=== PATIENT | female | born 1970 | race Caucasian/White ===

== ENCOUNTER → 2021-09-15 | Outpatient (CLI) | payer SELFPAY ==
[~2021-09-15] MED LIST: CASIRIVIMAB (REGN10933) (EUA) 600 MG, IMDEVIMAB (REGN10987) (EUA) 600 MG in SODIUM CHLO... IVPB NR; SODIUM CHLORIDE 0.9% 50 ML IVPB NR; SODIUM CHLORIDE 0.9% 500 ML 500 ML in EMPTY BAG 1 BAG IV PRN
[2021-09-15 10:41] VITALS: TEMP 98.4
[2021-09-15 11:01] VITALS: BP 116/77; PULSE 101; RESP 16
== END ==
LOC: PROCWHC3 10:04
DX: U07.1 COVID-19 (principal); E66.9 Obesity, unspecified; Z68.33 Body mass index [BMI] 33.0-33.9, adult; Z88.0 Allergy status to penicillin
CPT/HCPCS: Q0244; M0243

== ENCOUNTER 2025-04-20 20:21 | Inpatient (IN) | payer BC ==
--- NOTE | 2025-04-20 21:39 | ED ---
General Adult HPI - General Chief complaint: Abdominal Pain Stated complaint: Vomiting ABD pain Time Seen by Provider: 04/20/25 21:02 Source: patient, family, RN notes reviewed Mode of arrival: wheelchair - History of Present Illness Initial comments: 54-year-old female presents to the emergency department for evaluation of abdominal cramping and pain starting today. Patient reports that she has had lower abdominal pain followed by multiple episodes of diarrhea today. She does note gross blood in her bowel movements. She states that she had multiple episodes at home. She also endorses nausea and vomiting. Denies any known fever, chills. Denies any urinary symptoms. Prior surgeries include a hysterectomy. - Related Data Home Medications Medication Instructions Recorded Confirmed Aspirin EC [Ecotrin Low Dose] 81 mg PO W/BRKFST 04/21/25 04/21/25 Semaglutide [Ozempic] 1 mg SQ DELEON 04/21/25 04/21/25 lisinopriL [Zestril] 10 mg PO W/BRKFST 04/21/25 04/21/25 metFORMIN HCL [metFORMIN HCL ER] 750 mg PO W/BRKFST 04/21/25 04/21/25 ondansetron HCL [Zofran] 8 mg PO Q8HR PRN 04/21/25 04/21/25 Previous Rx's Medication Instructions Recorded Levofloxacin [Levaquin] 500 mg PO Q24H #10 tab 04/24/25 metroNIDAZOLE [Flagyl] 500 mg PO TID #30 tab 04/24/25 Allergies Allergy/AdvReac Type Severity Reaction Status Date / Time Penicillins Allergy Rash/Hives Verified 04/21/25 07:41 Review of Systems ROS Statement: Those systems with pertinent positive or pertinent negative responses have been documented in the HPI. ROS Other: All systems not noted in ROS Statement are negative. Past Medical History Past Medical History: No Reported History History of Any Multi-Drug Resistant Organisms: None Reported Past Surgical History: Ear Surgery Additional Past Surgical History / Comment(s): R ear implant Past Psychological History: No Psychological Hx Reported Smoking Status: Never smoker Past Alcohol Use History: None Reported Past Drug Use History: None Reported General Exam Limitations: no limitations General appearance: alert, in no apparent distress Head exam: Present: atraumatic, normocephalic, normal inspection Eye exam: Present: normal appearance, PERRL, EOMI. Absent: scleral icterus, conjunctival injection, periorbital swelling ENT exam: Present: mucous membranes dry Neck exam: Present: normal inspection. Absent: tenderness, meningismus, lymphadenopathy Respiratory exam: Present: normal lung sounds bilaterally. Absent: respiratory distress, wheezes, rales, rhonchi, stridor Cardiovascular Exam: Present: regular rate, normal rhythm, normal heart sounds. Absent: systolic murmur, diastolic murmur, rubs, gallop, clicks GI/Abdominal exam: Present: soft, tenderness, normal bowel sounds. Absent: distended, guarding, rebound, rigid Rectal exam: Present: normal rectal tone, heme (+) stool Extremities exam: Present: normal inspection, full ROM, normal capillary refill. Absent: tenderness, pedal edema, joint swelling, calf tenderness Back exam: Present: normal inspection Neurological exam: Present: alert, oriented X3 Psychiatric exam: Present: normal affect, normal mood Skin exam: Present: warm, dry, intact, normal color. Absent: rash Course Vital Signs 04/20/25 04/21/25 20:55 05:22 Temperature 98.1 F 98.4 F Pulse Rate 91 107 H Respiratory 18 18 Rate Blood Pressure 138/85 115/66 O2 Sat by Pulse 98 98 Oximetry Medical Decision Making - Medical Decision Making Was pt. sent in by a medical professional or institution ([employer], [employer], urgent care, hospital, or jail...) When possible be specific @ -No Did you speak to anyone other than the patient for history (EMS, parent, family, police, friend...)? What history was obtained from this source @ -No Did you review nursing and triage notes (agree or disagree)? Why? @ -I reviewed and agree with nursing and triage notes Were old charts reviewed (outside hosp., previous admission, EMS record, old EKG, old radiological studies, urgent care reports/EKG's, jail records)? Report findings @ -No old charts were reviewed Differential Diagnosis (chest pain, altered mental status, abdominal pain women, abdominal pain men, vaginal bleeding, weakness, fever, dyspnea, syncope, headache, dizziness, GI bleed, back pain, seizure, CVA, palpatations, mental health, musculoskeletal)? @ -Differential Abdominal Pain Men: Appendicitis, cholecystitis, diverticulosis, ischemic bowel, pancreatitis, hepatitis, UTI, gastroenteritis, AAA, incarcerated hernia, bowel obstruction, constipation, inflammatory bowel, hepatitis, peptic ulcer disease, splenic infarction, perforated viscus, testicular torsion, this is not meant to be an all-inclusive list EKG interpreted by me (3pts min.). @ -EKG at 2217 reveals sinus rhythm rate 85, NM 132, QRS 96, QT/QTc 393/435 X-rays interpreted by me (1pt min.). @ -None done CT interpreted by me (1pt min.). @ -CT of the abdomen pelvis reviewed long segment acute colitis sparing the cecum which could represent infectious, inflammatory and/or ischemic etiologies U/S interpreted by me (1pt. min.). @ -None done What testing was considered but not performed or refused? (CT, X-rays, U/S, labs)? Why? @ -None What meds were considered but not given or refused? Why? @ -None Did you discuss the management of the patient with other professionals (professionals i.e. , PA, DYE HOUSE WORKER, lab, RT, psych nurse, renal social worker, assistant terminal manager, teacher, executive officer, case consultant)? Give summary @ -Management discussed with [facility], Dr. Cutler who was accepting of the admission Was smoking cessation discussed for >3mins.? @ -No Was critical care preformed (if so, how long)? @ -No Were there social determinants of health that impacted care today? How? (Homelessness, low income, unemployed, alcoholism, drug addiction, transportation, low edu. Level, literacy, decrease access to med. care, snf, rehab)? @ -No Was there de-escalation of care discussed even if they declined (Discuss DNR or withdrawal of care, Hospice)? DNR status @ -No What co-morbidities impacted this encounter? (DM, HTN, Smoking, COPD, CAD, Cancer, CVA, ARF, Chemo, Hep., AIDS, mental health diagnosis, sleep apnea, morbid obesity)? @ -None Was patient admitted / discharged? Hospital course, mention meds given and route, prescriptions, significant lab abnormalities, going to OR and other pertinent info. @ -Admitted. Patient presented to the emergency department for evaluation of rectal bleeding and abdominal pain x1 day. Workup performed including laboratory studies which revealed leukocytosis at 19.9, hemoglobin 15.3 there is likely some degree of hemoconcentration due to dehydration. CMP reveals electrolytes within normal limits, hyperglycemia patient is a known diabetic. Patient underwent a CTA of the abdomen pelvis revealing long segment colitis with differentials including infectious, inflammatory, ischemic colitis with ulcerative colitis high in the differentials. Patient will be treated as such. Patient will be admitted to the hospital. She is understanding agreeable with this. Case was discussed with hospitalist, Dr. Cutler who is accepting of the admission Case discussed with Dr. Robertson Undiagnosed new problem with uncertain prognosis? @ -No Drug Therapy requiring intensive monitoring for toxicity (Heparin, Nitro, Insulin, Cardizem)? @ -No Were any procedures done? @ -No Diagnosis/symptom? @ -Colitis, GI bleed Acute, or Chronic, or Acute on Chronic? @ -Acute Uncomplicated (without systemic symptoms) or Complicated (systemic symptoms)? @ -Complicated Side effects of treatment? @ -No Exacerbation, Progression, or Severe Exacerbation? @ -No Poses a threat to life or bodily function? How? (Chest pain, [place], [place], pneumonia, PE, COPD, DKA, ARF, appy, cholecystitis, CVA, Diverticulitis, Homicidal, Suicidal, threat to staff... and all critical care pts) @ -GI bleed - Lab Data Result diagrams: 04/24/25 07:32 04/24/25 07:32 Lab Results 04/20/25 04/20/25 04/20/25 Range/Units 21:10 21:10 21:10 WBC 19.95 H (4.50-10.00) 10*3/uL RBC 5.43 H (4.10-5.20) 10*6/uL Hgb 15.3 H (12.0-15.0) g/dL Hct 45.2 (37.2-46.3) % MCV 83.2 (80.0-97.0) fL MCH 28.2 (27.0-32.0) pg MCHC 33.8 (32.0-37.0) g/dL Plt Count 273 (140-440) 10*3/uL MPV 10.9 (9.5-12.2) fL Immature Gran % (Auto) 0.5 % Neutrophils % 91.7 % Lymphocytes % 4.7 % Monocytes % 2.8 % Eosinophils % 0.0 % Basophils % 0.3 % Immature Gran # 0.09 H (0.00-0.04) 10*3/uL Neutrophils # 18.31 H (1.80-7.70) 10*3/uL Lymphocytes # 0.93 (0.90-5.00) 10*3/uL Monocytes # 0.56 (0.20-1.00) 10*3/uL Eosinophils # 0.00 L (0.04-0.35) 10*3/uL Basophils # 0.06 (0.00-0.10) 10*3/uL PT 10.7 (10.0-12.5) sec INR 1.0 (<1.2) APTT 21.7 L (22.0-30.0) sec Sodium 137 (137-145) mmol/L Potassium 4.3 (3.5-5.1) mmol/L Chloride 100 (98-107) mmol/L Carbon Dioxide 21 L (22-30) mmol/L Anion Gap 16 mmol/L BUN 24 H (7-17) mg/dL Creatinine 0.60 (0.52-1.04) mg/dL Est GFR (CKD-EPI)AfAm >90 (>60 ml/min/1.73 sqM) Est GFR (CKD-EPI)NonAf >90 (>60 ml/min/1.73 sqM) Glucose 263 H (74-99) mg/dL Calcium 9.4 (8.4-10.2) mg/dL Magnesium 1.9 (1.6-2.3) mg/dL Total Bilirubin 0.8 (0.2-1.3) mg/dL AST 28 (14-36) U/L ALT 31 (4-34) U/L Alkaline Phosphatase 93 (38-126) U/L Troponin I (0.000-0.034) ng/mL Total Protein 7.7 (6.3-8.2) g/dL Albumin 4.9 (3.5-5.0) g/dL Lipase 156 (23-300) U/L Urine Color Urine Appearance (Clear) Urine pH (5.0-8.0) Ur Specific [place] (1.001-1.035) Urine Protein (Negative) Urine Glucose (UA) (Negative) Urine Ketones (Negative) Urine Blood (Negative) Urine Nitrite (Negative) Urine Bilirubin (Negative) Urine Urobilinogen (<2.0) mg/dL Ur Leukocyte Esterase (Negative) Urine HCG, Qual (Not Detectd) 04/20/25 04/21/25 04/21/25 Range/Units 21:10 00:28 00:28 WBC (4.50-10.00) 10*3/uL RBC (4.10-5.20) 10*6/uL Hgb (12.0-15.0) g/dL Hct (37.2-46.3) % MCV (80.0-97.0) fL MCH (27.0-32.0) pg MCHC (32.0-37.0) g/dL Plt Count (140-440) 10*3/uL MPV (9.5-12.2) fL Immature Gran % (Auto) % Neutrophils % % Lymphocytes % % Monocytes % % Eosinophils % % Basophils % % Immature Gran # (0.00-0.04) 10*3/uL Neutrophils # (1.80-7.70) 10*3/uL Lymphocytes # (0.90-5.00) 10*3/uL Monocytes # (0.20-1.00) 10*3/uL Eosinophils # (0.04-0.35) 10*3/uL Basophils # (0.00-0.10) 10*3/uL PT (10.0-12.5) sec INR (<1.2) APTT (22.0-30.0) sec Sodium (137-145) mmol/L Potassium (3.5-5.1) mmol/L Chloride (98-107) mmol/L Carbon Dioxide (22-30) mmol/L Anion Gap mmol/L BUN (7-17) mg/dL Creatinine (0.52-1.04) mg/dL Est GFR (CKD-EPI)AfAm (>60 ml/min/1.73 sqM) Est GFR (CKD-EPI)NonAf (>60 ml/min/1.73 sqM) Glucose (74-99) mg/dL Calcium (8.4-10.2) mg/dL Magnesium (1.6-2.3) mg/dL Total Bilirubin (0.2-1.3) mg/dL AST (14-36) U/L ALT (4-34) U/L Alkaline Phosphatase (38-126) U/L Troponin I 0.015 (0.000-0.034) ng/mL Total Protein (6.3-8.2) g/dL Albumin (3.5-5.0) g/dL Lipase (23-300) U/L Urine Color Colorless Urine Appearance Clear (Clear) Urine pH 5.0 (5.0-8.0) Ur Specific [place] 1.050 H (1.001-1.035) Urine Protein Negative (Negative) Urine Glucose (UA) 1+ H (Negative) Urine Ketones 2+ H (Negative) Urine Blood Negative (Negative) Urine Nitrite Negative (Negative) Urine Bilirubin Negative (Negative) Urine Urobilinogen <2.0 (<2.0) mg/dL Ur Leukocyte Esterase Negative (Negative) Urine HCG, Qual Not Detected (Not Detectd) Disposition Clinical Impression: Colitis, Rectal bleeding Disposition: ADMITTED IP TO THIS HOSP Condition: Stable Is patient prescribed a controlled substance at d/c from ED?: No
[2025-04-20] MEDS: SODIUM CHLORIDE 0.9% 1,000 ML IV STA (21:55)
[2025-04-20] MEDS: MORPHINE SULFATE 4 MG/ML SYRINGE IVP STA (21:55)
[2025-04-20] MEDS: ONDANSETRON 4 MG/2 ML VIAL IVP STA (21:55)
[2025-04-20 22:13] LABS: Basophils # (A) 0.06 10*3/uL (0.00-0.10); Basophils % (A) 0.3 %; Eosinophils # (A) 0.00 10*3/uL (0.04-0.35); Eosinophils % (A) 0.0 %; HCT 45.2 % (37.2-46.3); HGB 15.3 g/dL (12.0-15.0); Lymphocytes # (A) 0.93 10*3/uL (0.90-5.00); Lymphocytes % (A) 4.7 %; MCH 28.2 pg (27.0-32.0); MCHC 33.8 g/dL (32.0-37.0); MCV 83.2 fL (80.0-97.0); Monocytes # (A) 0.56 10*3/uL (0.20-1.00); Monocytes % (A) 2.8 %; Neutrophils # (A) 18.31 10*3/uL (1.80-7.70); Neutrophils % (A) 91.7 %; Platelet Count 273 10*3/uL (140-440); RBC 5.43 10*6/uL (4.10-5.20); RDW 12.5 % (11.5-14.5); WBC 19.95 10*3/uL (4.50-10.00)
[2025-04-20 22:34] LABS: INR 1.0 (<1.2); Prothrombin Time 10.7 sec (10.0-12.5)
[2025-04-20 22:37] LABS: ALT 31 U/L (4-34); AST 28 U/L (14-36); African American GFR (CKD) >90 (>60 ml/min/1.73 sqM); Albumin 4.9 g/dL (3.5-5.0); Alkaline Phosphatase 93 U/L (38-126); Anion Gap 16 mmol/L; Blood Urea Nitrogen 24 mg/dL (7-17); Calcium 9.4 mg/dL (8.4-10.2); Carbon Dioxide 21 mmol/L (22-30); Chloride 100 mmol/L (98-107); Glucose 263 mg/dL (74-99); Lipase 156 U/L (23-300); Magnesium 1.9 mg/dL (1.6-2.3); Non-African American GFR(CKD) >90 (>60 ml/min/1.73 sqM); Potassium 4.3 mmol/L (3.5-5.1); Sodium 137 mmol/L (137-145); Total Protein 7.7 g/dL (6.3-8.2)
[2025-04-20 22:46] LABS: Partial Thromboplastin Time 21.7 sec (22.0-30.0)
--- NOTE | 2025-04-20 23:34 | CT ---
EXAMINATION TYPE: CT angio abdomen pelvis DATE OF EXAM: 04/20/2025 11:20 PM COMPARISON: None. HISTORY: Patient reports nausea/vomiting since this AM; patient lethargic and reports bloody stool. Patient endorses abdominal pain and cramping CT DLP: 1743.2 mGycm Automated exposure control for dose reduction was used. TECHNIQUE: Performed with IV Contrast, patient injected with 100 mL of Isovue 370. 3D reconstructed images are created on an independent workstation and reviewed.. FINDINGS: LUNG BASES: Some dependent atelectasis bilaterally. LIVER/GB: Liver borderline in size. Liver diffusely hypodense consistent with diffuse fatty infiltrat gary hepatocellular disease PANCREAS: No significant abnormality is seen. SPLEEN: No significant abnormality is seen. ADRENALS: No significant abnormality is seen. KIDNEYS: There is a nonobstructing 5 mm calculus in the right kidney axial image 38. There are few sm all simple appearing thin-walled cysts scattered throughout the right kidney that do not require foll ow-up. BOWEL: Suboptimal evaluation without enteric contrast. Mild to moderate wall thickening beginning in the right colon extends to the mid transverse colon. There is more moderate diffuse wall thickening a nd mild/moderate fat stranding near the splenic flexure into the left colon. [id number]-[id number] wall th ickening in the sigmoid colon extends into the rectum. There is sparing of the cecum and terminal ile um. No suspicious hypodense foci in the arterial phase images which become more prominent on delayed phase images to suggest active hemorrhage. A few distal colonic diverticula. No abnormal small or lar ge bowel dilatation. UTERUS/ADNEXA: No gross abnormality seen. LYMPH NODES: No greater than 1cm abdominal or pelvic lymph nodes are appreciated. OSSEOUS STRUCTURES: No significant abnormality is seen. OTHER: No significant additional abnormality is seen. IMPRESSION: There is a long segment acute colitis only sparing the cecum. Differential includes infec tious, inflammatory, and and ischemic etiologies. Ulcerative colitis needs to be strongly considered based on CT appearance. Correlate clinically. [facility], , 04/20/2025 11:31 PM
[2025-04-21] MEDS: methylPREDNISolone SOD SUCCI 125 MG/2 ML VIAL IV STA (00:38)
[2025-04-21] MEDS: SODIUM CHLORIDE 0.9% 1,000 ML IV ONE (00:39)
[2025-04-21] MEDS ORDERED: NALOXONE 0.4 MG/ML 1 ML VIAL IV PRN (00:44)
--- NOTE | 2025-04-21 00:44 | P.HPIM ---
History of Present Illness H&P Date: 04/21/25 Chief Complaint: Abdominal pain, diarrhea, and vomiting with bloody stools 54 year old female with diabetes and hypertension presents with severe abdominal pain, diarrhea, vomiting, and bloody stools. Patient reports this episode was significantly worse and lasted longer than previous similar episodes. Patient describes symptoms as "coming out both ends" and states the vomiting was "awful" and could not be controlled at home. Patient reports seeing "a lot" of blood mixed with stool. Patient has a history of IBS with typical constipation and diarrhea pattern, but denies previous episodes of bleeding to this extent. Previous episodes typically involved pain and vomiting, with pain causing the vomiting, but this episode was notably more severe and prolonged. CT scan f indings are suggestive of ulcerative colitis. Occasional alcohol use. Patient denies smoking or illicit drug use. PMHx Diabetes mellitus Hypertension Irritable bowel syndrome (IBS) with alternating constipation and diarrhea pattern Review of systems All systems reviewed with pertinent positive negatives as per HPI Gastrointestinal: Abdominal pain, diarrhea, vomiting, and bloody stools Genitourinary: Recent UTI approximately 2 weeks ago with blood noted for the first time. Denies burning with urination currently Respiratory: Denies cough or upper respiratory symptoms Constitutional: No other family members sick at home on exam Constitutional: No acute distress, conversant, pleasant Eyes: Anicteric sclerae, moist conjunctiva, Pupils equal round reactive to light ENMT: NC/AT Oropharynx clear, no erythema, or exudates Neck: Supple, no masses, or JVD No carotid bruits No thyromegaly Lungs: Clear to auscultation Clear to percussion Normal respiratory effort, no accessory muscle use Cardiovascular: Heart regular in rate and rhythm, No murmurs, gallops, or rubs No peripheral edema Abdominal: Soft Nontender, no guarding, rebound or rigidity Abdomen moving with respiration Extremities: No digital cyanosis No clubbing Pedal pulses intact and symmetrical Radial pulses intact and symmetrical No calf tenderness Psychiatric: Alert and oriented to person, place and time Appropriate affect fair judgement Neuro Muscles Strength 5/5 in all 4 extremities Sensation to light touch grossly present throughout Cranial nerves II-XII grossly intact Past Medical History Past Medical History: No Reported History History of Any Multi-Drug Resistant Organisms: None Reported Past Surgical History: Ear Surgery Additional Past Surgical History / Comment(s): R ear implant Past Psychological History: No Psychological Hx Reported Smoking Status: Never smoker Past Alcohol Use History: None Reported Past Drug Use History: None Reported Medications and Allergies Allergies Allergy/AdvReac Type Severity Reaction Status Date / Time Penicillins Allergy Unknown Verified 09/15/21 09:25 Physical Exam Vitals: Vital Signs Temp Pulse Resp BP Pulse Ox 04/20/25 20:55 98.1 F 91 18 138/85 98 Intake and Output 04/20/25 04/20/25 04/21/25 14:59 22:59 06:59 Other: Weight 83.915 kg Results CBC & Chem 7: 04/20/25 21:10 04/20/25 21:10 Labs: Abnormal Lab Results - Last 24 Hours (Table) 04/20/25 04/20/25 04/20/25 Range/Units 21:10 21:10 21:10 WBC 19.95 H (4.50-10.00) 10*3/uL RBC 5.43 H (4.10-5.20) 10*6/uL Hgb 15.3 H (12.0-15.0) g/dL Immature Gran # 0.09 H (0.00-0.04) 10*3/uL Neutrophils # 18.31 H (1.80-7.70) 10*3/uL Eosinophils # 0.00 L (0.04-0.35) 10*3/uL APTT 21.7 L (22.0-30.0) sec Carbon Dioxide 21 L (22-30) mmol/L BUN 24 H (7-17) mg/dL Glucose 263 H (74-99) mg/dL Assessment and Plan Assessment: Patient with diabetes and hypertension presenting with severe gastrointestinal symptoms including abdominal pain, diarrhea, vomiting, and bloody stools with CT scan findings suggestive of ulcerative colitis. 1. Suspected ulcerative colitis: - CT scan findings suggestive of ulcerative colitis - Family history of ulcerative colitis - New onset of bloody stools in patient with previous IBS history - Plan: a) Gastroenterology consultation b) outpatient/Inpatient colonoscopy as recommended by GI specialist Hemoglobin stable at 15.3 2. Elevated white blood cell count: - Likely related to inflammatory process - Plan: Monitor and follow up 3. Diabetes mellitus: - Plan: Continue insulin sliding scale 4. Hypertension: - Plan: Continue home BP meds DVT PPX mechanical secondary to GI bleeding CT scan: Findings suggestive of ulcerative colitis Laboratory: Elevated white blood cell count, renal function unremarkable sodium 137 potassium 4.3 BUN 24 creatinine 0.6, liver enzymes unremarkable Colonoscopy: Performed 7-8 years ago, no biopsies taken at that time
[2025-04-21 01:24] LABS: Bilirubin,Urine Negative (Negative); Blood,Urine Negative (Negative); Color,Urine Colorless; Glucose,Urine (UA) 1+ (Negative); Leukocyte Esterase,Urine Negative (Negative); Nitrite,Urine Negative (Negative); PH, Urine 5.0 (5.0-8.0); Protein,Urine Negative (Negative); Urobilinogen,Urine <2.0 mg/dL (<2.0)
[2025-04-21] MEDS: HYDROmorphone 1 MG/ML 1 ML SYRINGE IVP STA (01:34)
[2025-04-21 01:35] LABS: Specific Gravity,Urine 1.050 (1.001-1.035)
[2025-04-21 01:36] LABS: Ketones,Urine 2+ (Negative)
[2025-04-21] MEDS: SODIUM CHLORIDE 0.9% 1,000 ML IV SCH (01:38)
[2025-04-21] MEDS ORDERED: DEXTROSE 50% SYRINGE 50 ML IVP PRN ×2 (02:24)
[2025-04-21 03:01] LABS: Glucose,Whole Blood 225 mg/dL (70-110)
[2025-04-21] MEDS: INSULIN LISPRO (HumaLOG) 100 UNIT/ML 10 mL VL SQ SCH (09:20)
[2025-04-21] MEDS: HYDROmorphone 0.5 MG/0.5 ML SYRINGE IVP PRN (10:04)
[2025-04-21] MEDS: predniSONE 20 MG TAB PO SCH (10:04)
[2025-04-21] MEDS: ONDANSETRON 4 MG/2 ML VIAL IVP PRN (10:05)
[2025-04-21 10:39] LABS: HCT 39.9 % (37.2-46.3); HGB 13.3 g/dL (12.0-15.0); MCH 28.1 pg (27.0-32.0); MCHC 33.3 g/dL (32.0-37.0); MCV 84.2 fL (80.0-97.0); Platelet Count 267 10*3/uL (140-440); RBC 4.74 10*6/uL (4.10-5.20); RDW 12.2 % (11.5-14.5); WBC 15.80 10*3/uL (4.50-10.00)
[2025-04-21 10:51] LABS: Glucose,Whole Blood 215 mg/dL (70-110)
[2025-04-21 10:51] LABS: ALT 26 U/L (4-34); AST 20 U/L (14-36); African American GFR (CKD) >90 (>60 ml/min/1.73 sqM); Albumin 4.4 g/dL (3.5-5.0); Alkaline Phosphatase 78 U/L (38-126); Anion Gap 17 mmol/L; Blood Urea Nitrogen 17 mg/dL (7-17); Calcium 9.6 mg/dL (8.4-10.2); Carbon Dioxide 23 mmol/L (22-30); Chloride 103 mmol/L (98-107); Glucose 249 mg/dL (74-99); Non-African American GFR(CKD) >90 (>60 ml/min/1.73 sqM); Potassium 4.3 mmol/L (3.5-5.1); Sodium 143 mmol/L (137-145); Total Protein 7.1 g/dL (6.3-8.2)
--- NOTE | 2025-04-21 12:22 | P.CONS ---
History of Present Illness - Reason for Consult Consult date: 04/21/25 Colitis Requesting physician: Jazmine Jameson - Chief Complaint Abdominal pain and diarrhea - History of Present Illness This a pleasant 54-year-old female who presented to the emergency department yesterday with complaints of abdominal pain, diarrhea and blood in her stool. Patient states she has a history of IBS was diagnosed many years ago by her PCP. Medical history includes diabetes mellitus and IBS. Patient states she started having severe abdominal pain nausea and vomiting diarrhea with blood in her stool which she has not really had in the past. She states for multiple years she has had flareups where she will get diarrhea about 10 times a day for 1 to 2 days this occurs around every 2 to 3 weeks in the summer and maybe every month or 2 in the wintertime. She had a colonoscopy done about 7 to 8 years ago at [place] and states she was told it was normal. She currently is not on any medications for her IBS. She was recently started on Ozempic and metformin for elevated blood sugars. She also states she was recently started on antibiotics for urinary tract infection about 2 weeks ago. Last bowel movement was yesterday evening. Patient was admitted with leukocytosis, she was afebrile. She had a CT angiogram of the abdomen with reports of long segment acute colitis only sparing the cecum. Differential diagnosis includes infectious inflammatory and ischemic etiologies. Ulcerative colitis needs to be strongly considered based on CT appearance. Correlate clinically. Started on Zosyn and Flagyl, also started on prednisone 40 mg daily by primary medicine team. Patient currently is comfortable, no further rectal bleeding or diarrhea today. Leukocytosis trending down. Patient had a 2 g drop in her hemoglobin from 15- 13. Review of Systems REVIEW OF SYSTEMS: CARDIOPULMONARY: No chest pain or shortness of breath. Gastrointestinal: Abdominal pain. Nausea and vomiting, diarrhea. No hematemesis, coffee-ground emesis. Rectal bleeding with blood in stool. GENITOURINARY: No dysuria or hematuria. MUSCULOSKELETAL: Reports normal range of motion. SKIN: No rashes. No jaundice. ENDOCRINE: No chills, fevers. No excessive weight gain or loss. No polydipsia or polyuria. PSYCHIATRIC: Unremarkable. NEUROLOGY: No change in mental status. Denies dizziness, headache. ENT: Vision unremarkable. CONSTITUTIONAL: No recent weight loss. No fever, chills, night sweats. Past Medical History Past Medical History: No Reported History History of Any Multi-Drug Resistant Organisms: None Reported Past Surgical History: Ear Surgery Additional Past Surgical History / Comment(s): R ear implant Past Psychological History: No Psychological Hx Reported Smoking Status: Never smoker Past Alcohol Use History: None Reported Past Drug Use History: None Reported Medications and Allergies Home Medications Medication Instructions Recorded Confirmed Type Aspirin EC [Ecotrin Low Dose] 81 mg PO W/BRKFST 04/21/25 04/21/25 History Semaglutide [Ozempic] 1 mg SQ DELEON 04/21/25 04/21/25 History lisinopriL [Zestril] 10 mg PO W/BRKFST 04/21/25 04/21/25 History metFORMIN HCL [metFORMIN HCL ER] 750 mg PO W/BRKFST 04/21/25 04/21/25 History ondansetron HCL [Zofran] 8 mg PO Q8HR PRN 04/21/25 04/21/25 History Allergies Allergy/AdvReac Type Severity Reaction Status Date / Time Penicillins Allergy Rash/Hives Verified 04/21/25 07:41 Physical Exam Vitals: Vital Signs Temp Pulse Pulse Resp BP BP Pulse Ox 04/21/25 07:30 98.6 F 111 H 14 134/79 93 L 04/21/25 05:22 98.4 F 107 H 18 115/66 98 04/20/25 20:55 98.1 F 91 18 138/85 98 Intake and Output 04/20/25 04/21/25 04/21/25 22:59 06:59 14:59 Other: Weight 83.915 kg 83.915 kg General appearance: The patient is alert, oriented, appears in no acute distress. HET: Head is normocephalic and atraumatic. Conjunctiva pink. Sclera anicteric. Neck: Supple without lymphadenopathy. Trachea midline. Heart: Regular. Lungs: Equal expansion, normal respiratory effort. Abdomen: Soft, nontender, nondistended. Skin: No rashes. No jaundice. Extremities: Normal skin color and turgor. No pedal edema. Neurological: No focal deficits. Alert and oriented x3. Results CBC & Chem 7: 04/22/25 05:49 04/22/25 03:43 Labs: Abnormal Lab Results - Last 24 Hours (Table) 04/20/25 04/20/25 04/20/25 Range/Units 21:10 21:10 21:10 WBC 19.95 H (4.50-10.00) 10*3/uL RBC 5.43 H (4.10-5.20) 10*6/uL Hgb 15.3 H (12.0-15.0) g/dL Immature Gran # 0.09 H (0.00-0.04) 10*3/uL Neutrophils # 18.31 H (1.80-7.70) 10*3/uL Eosinophils # 0.00 L (0.04-0.35) 10*3/uL APTT 21.7 L (22.0-30.0) sec Carbon Dioxide 21 L (22-30) mmol/L BUN 24 H (7-17) mg/dL Glucose 263 H (74-99) mg/dL POC Glucose (mg/dL) (70-110) mg/dL Ur Specific [place] (1.001-1.035) Urine Glucose (UA) (Negative) Urine Ketones (Negative) 04/21/25 04/21/25 Range/Units 00:28 02:58 WBC (4.50-10.00) 10*3/uL RBC (4.10-5.20) 10*6/uL Hgb (12.0-15.0) g/dL Immature Gran # (0.00-0.04) 10*3/uL Neutrophils # (1.80-7.70) 10*3/uL Eosinophils # (0.04-0.35) 10*3/uL APTT (22.0-30.0) sec Carbon Dioxide (22-30) mmol/L BUN (7-17) mg/dL Glucose (74-99) mg/dL POC Glucose (mg/dL) 225 H (70-110) mg/dL Ur Specific [place] 1.050 H (1.001-1.035) Urine Glucose (UA) 1+ H (Negative) Urine Ketones 2+ H (Negative) Comments: CT angiogram of the abdomen with reports of long segment acute colitis only sparing the cecum. Differential diagnosis includes infectious inflammatory and ischemic etiologies. Ulcerative colitis needs to be strongly considered based on CT appearance. Correlate clinically. Assessment and Plan (1) Colitis Narrative/Plan: 54-year-old female presenting with abdominal pain nausea vomiting and diarrhea with previous diagnosis of IBS by her primary care physician. Recently on antibiotics for urinary tract infection which she completed about a week ago. This is a new patient who has mixed IBS with constipation and diarrhea where she has flareups of diarrhea for 10 times a day for 1 to 2 days at times. Admitted with leukocytosis concerning for possible infectious, ischemic versus inflammatory colitis with CT evidence. Continue antibiotics at this time, need to consider possible ulcerative colitis, although less likely. Last colonoscopy 7-8 years ago which she states was normal. Likely will defer colonoscopy at this time secondary to significant inflammation within the colon. Patient will need outpatient follow-up and colonoscopy with gastroenterology. Current Visit: Yes Status: Acute Code(s): K52.9 - NONINFECTIVE GASTROENTERITIS AND COLITIS, UNSPECIFIED SNOMED Code(s): 31739102 Plan: 1. Patient may have clear liquid diet 2. Symptomatic and supportive care 3. Antiemetics as needed 4. Continue antibiotics as ordered 5. Please send stool for C. difficile 6. Further recommendations forthcoming based on clinical course Thank you for this consultation, we will continue to follow. Dr. Camryn Rivas I agree with the dictator's note, documented as a scribe by Leydi Villa.
[2025-04-21] MEDS: LEVOFLOXACIN 500MG-D5W PMX 500 MG in DEXTROSE/WATER 1 100ML.BAG IVPB SCH (15:42)
--- NOTE | 2025-04-21 16:38 | P.PN ---
Subjective Progress Note Date: 04/21/25 Hospital course: Patient is a very pleasant 54-year-old female with a past medical history of hypertension, [id number] diabetes mellitus, and IBS with chronic constipation followed by diarrhea pattern. She presented to the emergency department on 04/20/2025 secondary to reports of severe abdominal pain, nausea, and vomiting accompanied by multiple episodes of bright red blood in her stool. She denied having any hematemesis or coffee-ground emesis and denied having any fevers, chills, diaphoresis, or lightheadedness. Upon arrival to our facility, patient underwent evaluation in the emergency department. Vital signs upon arrival show blood pressure 138/85, heart rate 91, respiratory rate 18, temp 98.1 F, and SpO2 of 98% on room air. EKG completed showing normal sinus rhythm at 85 bpm with no noted T wave or ST abnormality showing no signs of acute ische bartolome upon personal review and interpretation. Labs completed and reviewed. CBC showing leukocytosis with WBC count of 19.95 and hemoglobin of 15.3. Coagulation profile showing a low PTT of 21.7. BMP showing high anion gap metabolic acidosis with chloride of 100, bicarb of 21, and anion gap of 16 along with mild prerenal azotemia with BUN of 24. Blood glucose was 263. Calcium 9.4. Magnesium 1.9. Liver profile unremarkable. Troponin was 0.015. Lipase normal findings at 156. Urinalysis positive for glucose and proteins but negative for infection. Serum acetone negative. CTA abdomen and pelvis was completed showing a long segment of acute colitis only sparing the cecum concerning for infectious/inflammatory/ischemic etiologies, radiologist stating ulcerative colitis needs to be strongly considered based upon CT appearance. Physical exam: Patient was seen and fully evaluated at bedside this morning. She reports continued abdominal pain but feeling better than she did upon arrival with no further episodes of bright red blood per rectum since last night but also states she has not had any further bowel movements since last night. She states nausea and vomiting has been controlled since arrival to our facility and receiving antiemetics. Patient denies any chest pain, palpitations, shortness of breath, or any other complaints at this time. Vital signs reviewed and stable. General: Nontoxic, no distress and appears stated age. Derm: Skin warm and dry, normal coloration for ethnicity. Head: Atraumatic, normocephalic and symmetric. Eyes: EOM's intact, no lid lag, and anicteric sclera Mouth: no lip lesions, mucus membranes moist Cardiovascular: regular rate and rhythm with normal S1S2, no murmur, positive posterior tibial pulses bilaterally, and cap refill < 2 seconds. Lungs: Respirations even, regular, and unlabored on room air. Lungs CTA bilaterally, no rhonchi, no rales, no wheezing, and no accessory muscle usage. Abdominal: soft, bowel sounds x 4, tenderness upon palpation to bilateral lower quadrants, no guarding, no appreciable organomegaly Ext: ROM intact. No gross muscle atrophy, no edema, no contractures Neuro: Speech clear, face symmetrical and CN II-XII grossly intact with no noted focal neuro deficits Psych: Alert and oriented to person, place, time, and situation. Appropriate and pleasant affect. Assessment and Plan of Care: Colitis, concerns for possible ulcerative colitis Lower GI bleed, with reports of bright red blood per rectum, suspect secondary to above Leukocytosis Lactic acidosis Reported history of IBS Consult placed to gastroenterology. Continue IV antibiotics with Levaquin 500 mg every 24 hours and Flagyl 500 mg every 8 hours. IV fluid hydration with 0.9% normal saline at 100 cc/h. Clear liquid diet, advance only per recommendations of gastroenterology. Obtain C. difficile Continue close monitoring with repeat a.m. labs to follow closely for resolution of leukocytosis close monitoring of hemoglobin secondary to reports of lower GI bleed. Psz-[id number] diabetes mellitus with hyperglycemia Hold metformin and Ozempic and patient placed on glycemic protocol with Humalog sliding scale. Follow-up on hemoglobin A1c results. Hypertension Monitor vital signs and continue daily medication regimen with lisinopril 10 mg daily. Data and imaging reviewed: Vital signs reviewed. Blood pressure 134/79, heart rate 111, respiratory rate 14, temp 98.6 F, and SpO2 of 93% on room air. Morning labs reviewed. CBC showing some improvement of leukocytosis with i nitial WBC count of 19.95 decreasing down to 15.80 this morning and stable hemoglobin of 13.3. BMP unremarkable with exception of hyperglycemia with blood glucose of 249. Calcium 9.6. Liver profile unremarkable. Urinalysis was positive for glucose and ketones but negative for infection. Serum acetone was negative. CODE STATUS: Full code DVT prophylaxis: MANJEET caceres and SCDs Anticipated discharge date: Pending clinical course Anticipated discharge place: Home Patient was seen independently by Nurse Pracitioner. This document was prepared using Telly dictation software. Please allow for er rors in power saw mechanic, while rare they do occur. Eduardo Mojica NP rendered care for this patient independently, reviewed the findings and plan as documented in the note above and agree with plan. I did not physically speak with or examine the patient on this date. Objective - Vital Signs Vital signs: Vital Signs Temp 98.6 F 04/21/25 07:30 Pulse 111 H 04/21/25 07:30 Resp 14 04/21/25 07:30 BP 134/79 04/21/25 07:30 Pulse Ox 93 L 04/21/25 07:30 FiO2 Intake & Output 04/20/25 04/21/25 04/21/25 18:59 06:59 18:59 Weight 83.915 kg - Labs CBC & Chem 7: 04/21/25 09:43 04/21/25 09:43 Labs: Abnormal Lab Results - Last 24 Hours (Table) 04/20/25 04/20/25 04/20/25 Range/Units 21:10 21:10 21:10 WBC 19.95 H (4.50-10.00) 10*3/uL RBC 5.43 H (4.10-5.20) 10*6/uL Hgb 15.3 H (12.0-15.0) g/dL Immature Gran # 0.09 H (0.00-0.04) 10*3/uL Neutrophils # 18.31 H (1.80-7.70) 10*3/uL Eosinophils # 0.00 L (0.04-0.35) 10*3/uL APTT 21.7 L (22.0-30.0) sec Carbon Dioxide 21 L (22-30) mmol/L BUN 24 H (7-17) mg/dL Glucose 263 H (74-99) mg/dL POC Glucose (mg/dL) (70-110) mg/dL Ur Specific [place] (1.001-1.035) Urine Glucose (UA) (Negative) Urine Ketones (Negative) 04/21/25 04/21/25 Range/Units 00:28 02:58 WBC (4.50-10.00) 10*3/uL RBC (4.10-5.20) 10*6/uL Hgb (12.0-15.0) g/dL Immature Gran # (0.00-0.04) 10*3/uL Neutrophils # (1.80-7.70) 10*3/uL Eosinophils # (0.04-0.35) 10*3/uL APTT (22.0-30.0) sec Carbon Dioxide (22-30) mmol/L BUN (7-17) mg/dL Glucose (74-99) mg/dL POC Glucose (mg/dL) 225 H (70-110) mg/dL Ur Specific [place] 1.050 H (1.001-1.035) Urine Glucose (UA) 1+ H (Negative) Urine Ketones 2+ H (Negative)
[2025-04-21 16:53] LABS: Glucose,Whole Blood 209 mg/dL (70-110)
[2025-04-21] MEDS: metroNIDAZOLE-NS PMX 500 MG in SALINE 1 100ML.BAG IVPB SCH (17:08)
[2025-04-21 20:09] LABS: Glucose,Whole Blood 191 mg/dL (70-110)
[2025-04-22] MEDS: MELATONIN 3 MG TABLET PO PRN (00:02)
[2025-04-22 03:36] LABS: Glucose,Whole Blood 168 mg/dL (70-110)
[2025-04-22] MEDS: HYDROmorphone 1 MG/ML 1 ML SYRINGE IVP PRN (03:47)
[2025-04-22 03:57] LABS: Basophils # (A) 0.03 10*3/uL (0.00-0.10); Basophils % (A) 0.2 %; Eosinophils # (A) 0.00 10*3/uL (0.04-0.35); Eosinophils % (A) 0.0 %; HCT 37.4 % (37.2-46.3); HGB 12.7 g/dL (12.0-15.0); Lymphocytes # (A) 2.37 10*3/uL (0.90-5.00); Lymphocytes % (A) 12.7 %; MCH 28.0 pg (27.0-32.0); MCHC 34.0 g/dL (32.0-37.0); MCV 82.6 fL (80.0-97.0); Monocytes # (A) 1.03 10*3/uL (0.20-1.00); Monocytes % (A) 5.5 %; Neutrophils # (A) 15.06 10*3/uL (1.80-7.70); Neutrophils % (A) 80.8 %; Platelet Count 249 10*3/uL (140-440); RBC 4.53 10*6/uL (4.10-5.20); RDW 12.5 % (11.5-14.5); WBC 18.63 10*3/uL (4.50-10.00)
[2025-04-22 04:22] LABS: ALT 22 U/L (4-34); AST 20 U/L (14-36); African American GFR (CKD) >90 (>60 ml/min/1.73 sqM); Albumin 3.9 g/dL (3.5-5.0); Alkaline Phosphatase 66 U/L (38-126); Anion Gap 12 mmol/L; Blood Urea Nitrogen 14 mg/dL (7-17); Calcium 9.3 mg/dL (8.4-10.2); Carbon Dioxide 23 mmol/L (22-30); Chloride 104 mmol/L (98-107); Glucose 165 mg/dL (74-99); Non-African American GFR(CKD) >90 (>60 ml/min/1.73 sqM); Potassium 4.0 mmol/L (3.5-5.1); Sodium 139 mmol/L (137-145); Total Protein 6.4 g/dL (6.3-8.2)
[2025-04-22 06:25] LABS: HCT 35.3 % (37.2-46.3); HGB 11.8 g/dL (12.0-15.0); MCH 28.4 pg (27.0-32.0); MCHC 33.4 g/dL (32.0-37.0); MCV 85.1 fL (80.0-97.0); Platelet Count 246 10*3/uL (140-440); RBC 4.15 10*6/uL (4.10-5.20); RDW 12.4 % (11.5-14.5); WBC 18.80 10*3/uL (4.50-10.00)
[2025-04-22 06:39] LABS: Glucose,Whole Blood 157 mg/dL (70-110)
[2025-04-22] MEDS: CALCIUM CARBONATE 500 MG CHEWABLE PO PRN (08:36)
[2025-04-22] MEDS: LACTATED RINGERS 1,000 ML IV SCH (08:42)
[2025-04-22] MEDS: PANTOPRAZOLE 40 MG/10 ML VIAL IVP SCH (08:42)
[2025-04-22 09:54] LABS: HCT 34.2 % (37.2-46.3); HGB 11.8 g/dL (12.0-15.0); MCH 28.9 pg (27.0-32.0); MCHC 34.5 g/dL (32.0-37.0); MCV 83.6 fL (80.0-97.0); Platelet Count 243 10*3/uL (140-440); RBC 4.09 10*6/uL (4.10-5.20); RDW 12.7 % (11.5-14.5); WBC 19.36 10*3/uL (4.50-10.00)
--- NOTE | 2025-04-22 10:42 | P.PN ---
Subjective Progress Note Date: 04/22/25 Principal diagnosis: Colitis, GI bleed This a pleasant 54-year-old female who presented to the emergency department yesterday with complaints of abdominal pain, diarrhea and blood in her stool. Patient states she has a history of IBS was diagnosed many years ago by her PCP. Medical history includes diabetes mellitus and IBS. Patient states she started having severe abdominal pain nausea and vomiting diarrhea with blood in her stool which she has not really had in the past. She states for multiple years she has had flareups where she will get diarrhea about 10 times a day for 1 to 2 days this occurs around every 2 to 3 weeks in the summer and maybe every month or 2 in the wintertime. She had a colonoscopy done about 7 to 8 years ago at [facility] and states she was told it was normal. She currently is not on any medications for her IBS. She was recently started on Ozempic and metformin for elevated blood sugars. She also states she was recently started on antibiotics for urinary tract infection about 2 weeks ago. Last bowel movement was yesterday evening. Patient was admitted with leukocytosis, she was afebrile. She had a CT angiogram of the abdomen with reports of long segment acute colitis only sparing the cecum. Differential diagnosis includes infectious inflammatory and ischemic etiologies. Ulcerative colitis needs to be strongly considered ba sed on CT appearance. Correlate clinically. Started on Zosyn and Flagyl, also started on prednisone 40 mg daily by primary medicine team. Patient currently is comfortable, no further rectal bleeding or diarrhea today. Leukocytosis trending down. Patient had a 2 g drop in her hemoglobin from 15-13. 04/22/2025 Patient seen and examined today as a follow-up. Patient had an 18 called early this morning as she had episode of abdominal cramping and bright red blood per rectum around 345. She was transferred to the ICU as an overflow for 3 S. She has had no further bleeding since that time. States she has just overall abdominal discomfort. She remains on IV antibiotics. No nausea or vomiting. Patient is hemodynamically stable. Today's labs WBC 18.8 hemoglobin 11.8 hematocrit 35 platelet count 246,000 Objective - Vital Signs Vital signs: Vital Signs Temp 98.1 F 04/22/25 04:50 Pulse 88 04/22/25 05:27 Resp 16 04/22/25 05:27 BP 135/76 04/22/25 05:27 Pulse Ox 93 L 04/22/25 05:27 FiO2 Intake & Output 04/21/25 04/22/25 04/22/25 18:59 06:59 18:59 Intake Total 240 100 Balance 240 100 Weight 75.3 kg Intake: IV 100 Sodium Chloride 0.9% 1, 100 000 ml @ 100 mls/hr IV . Q10H REJI Rx#:[id number] Oral 240 Other: # Voids 1 # Bowel Movements 1 - Exam General appearance: The patient is alert, oriented, appears in no acute distress. HET: Head is normocephalic and atraumatic. Conjunctiva pink. Sclera anicteric. Neck: Supple without lymphadenopathy. Abdomen: Soft, mild tenderness, nondistended. Extremities: Normal skin color and turgor. No pedal edema Skin: No rashes, no jaundice Neurological: No focal deficits. Alert and oriented. - Labs CBC & Chem 7: 04/22/25 09:33 04/22/25 03:43 Labs: Abnormal Lab Results - Last 24 Hours (Table) 04/21/25 04/21/25 04/21/25 Range/Units 09:43 09:43 10:50 WBC 15.80 H (4.50-10.00) 10*3/uL Hgb (12.0-15.0) g/dL Hct (37.2-46.3) % Immature Gran # (0.00-0.04) 10*3/uL Neutrophils # (1.80-7.70) 10*3/uL Monocytes # (0.20-1.00) 10*3/uL Eosinophils # (0.04-0.35) 10*3/uL Creatinine 0.47 L (0.52-1.04) mg/dL Glucose 249 H (74-99) mg/dL POC Glucose (mg/dL) 215 H (70-110) mg/dL Hemoglobin A1c (<=6.0) % 04/21/25 04/21/25 04/22/25 Range/Units 16:51 20:08 03:34 WBC (4.50-10.00) 10*3/uL Hgb (12.0-15.0) g/dL Hct (37.2-46.3) % Immature Gran # (0.00-0.04) 10*3/uL Neutrophils # (1.80-7.70) 10*3/uL Monocytes # (0.20-1.00) 10*3/uL Eosinophils # (0.04-0.35) 10*3/uL Creatinine (0.52-1.04) mg/dL Glucose (74-99) mg/dL POC Glucose (mg/dL) 209 H 191 H 168 H (70-110) mg/dL Hemoglobin A1c (<=6.0) % 04/22/25 04/22/25 04/22/25 Range/Units 03:42 03:43 03:43 WBC 18.63 H (4.50-10.00) 10*3/uL Hgb (12.0-15.0) g/dL Hct (37.2-46.3) % Immature Gran # 0.14 H (0.00-0.04) 10*3/uL Neutrophils # 15.06 H (1.80-7.70) 10*3/uL Monocytes # 1.03 H (0.20-1.00) 10*3/uL Eosinophils # 0.00 L (0.04-0.35) 10*3/uL Creatinine (0.52-1.04) mg/dL Glucose 165 H (74-99) mg/dL POC Glucose (mg/dL) (70-110) mg/dL Hemoglobin A1c 7.1 H (<=6.0) % 04/22/25 04/22/25 Range/Units 05:49 06:38 WBC 18.80 H (4.50-10.00) 10*3/uL Hgb 11.8 L (12.0-15.0) g/dL Hct 35.3 L (37.2-46.3) % Immature Gran # (0.00-0.04) 10*3/uL Neutrophils # (1.80-7.70) 10*3/uL Monocytes # (0.20-1.00) 10*3/uL Eosinophils # (0.04-0.35) 10*3/uL Creatinine (0.52-1.04) mg/dL Glucose (74-99) mg/dL POC Glucose (mg/dL) 157 H (70-110) mg/dL Hemoglobin A1c (<=6.0) % Assessment and Plan (1) Colitis Narrative/Plan: 54-year-old female presenting with abdominal pain nausea vomiting and diarrhea with previous diagnosis of IBS by her primary care physician. Recently on antibiotics for urinary tract infection which she completed about a week ago. This is a new patient who has mixed IBS with constipation and diarrhea where she has flareups of diarrhea for 10 times a day for 1 to 2 days at times. Admitted with leukocytosis concerning for possible infectious, ischemic versus inflammatory colitis with CT evidence. Continue antibiotics at this time, need to consider possible ulcerative colitis, although less likely. Last colonoscopy 7-8 years ago which she states was normal. Patient with another episode of for painful cramping followed by blood per rectum. Stool for C. difficile pending not collected. Again likely dealing with infectious colitis versus ischemic colitis. Continue to treat symptomatically. If further bleeding may consider colonoscopy while inpatient. Current Visit: Yes Status: Acute Code(s): K52.9 - NONINFECTIVE GASTROENTERITIS AND COLITIS, UNSPECIFIED SNOMED Code(s): 21915511 Plan: 1. Patient may have clear liquid diet 2. Symptomatic and supportive care 3. CBC every 6 hours 4. Antiemetics as needed 5. Continue antibiotics as ordered 6. Please send stool for C. difficile 7. Patient continues to have further bleeding, may consider possible colonoscopy as an inpatient otherwise recommend outpatient colonoscopy in 4 to 6 weeks. Further recommendations forthcoming based on clinical course Thank you for this consultation, we will continue to follow. Dr. Camryn Rivas I agree with the dictator's note, documented as a scribe by Leydi Villa.
--- NOTE | 2025-04-22 14:39 | P.PN ---
Subjective Progress Note Date: 04/22/25 Hospital course: Patient is a very pleasant 54-year-old female with a past medical history of hypertension, knv-ihqmddl-esrlrqnyw diabetes mellitus, and IBS with chronic constipation followed by diarrhea pattern. She presented to the emergency department on 04/20/2025 secondary to reports of severe abdominal pain, nausea, and vomiting accompanied by multiple episodes of bright red blood in her stool. She denied having any hematemesis or coffee-ground emesis and denied having any fevers, chills, diaphoresis, or lightheadedness. Upon arrival to our facility, patient underwent evaluation in the emergency department. Vital signs upon arrival show blood pressure 138/85, heart rate 91, respiratory rate 18, temp 98.1 F, and SpO2 of 98% on room air. EKG completed showing normal sinus rhythm at 85 bpm with no noted T wave or ST abnormality showing no signs of acute ische bartolome upon personal review and interpretation. Labs completed and reviewed. CBC showing leukocytosis with WBC count of 19.95 and hemoglobin of 15.3. Coagulation profile showing a low PTT of 21.7. BMP showing high anion gap metabolic acidosis with chloride of 100, bicarb of 21, and anion gap of 16 along with mild prerenal azotemia with BUN of 24. Blood glucose was 263. Calcium 9.4. Magnesium 1.9. Liver profile unremarkable. Troponin was 0.015. Lipase normal findings at 156. Urinalysis positive for glucose and proteins but negative for infection. Serum acetone negative. CTA abdomen and pelvis was completed showing a long segment of acute colitis only sparing the cecum concerning for infectious/inflammatory/ischemic etiologies, radiologist stating ulcerative colitis needs to be strongly considered based upon CT appearance. Physical exam: Patient was seen and fully evaluated at bedside this morning. She reports continued intermittent abdominal pain/cramping and had another episode of bright red blood per rectum early this morning around 3 AM and was transferred to , but placed in ICU overflow bed. Patient reports this episode was mostly blood w ith just a little bit of liquid stool. She denies having any nausea, vomiting, headache, lightheadedness, chest pain, palpitations, shortness of breath, or any other complaints at this time. Vital signs reviewed and stable. General: Nontoxic, no distress and appears stated age. Derm: Skin warm and dry, normal coloration for ethnicity. Head: Atraumatic, normocephalic and symmetric. Eyes: EOM's intact, no lid lag, and anicteric sclera Mouth: no lip lesions, mucus membranes moist Cardiovascular: regular rate and rhythm with normal S1S2, no murmur, positive posterior tibial pulses bilaterally, and cap refill < 2 seconds. Lungs: Respirations even, regular, and unlabored on room air. Lungs CTA bilaterally, no rhonchi, no rales, no wheezing, and no accessory muscle usage. Abdominal: soft, bowel sounds x 4, tenderness upon palpation to bilateral lower quadrants, no guarding, no appreciable organomegaly Ext: ROM intact. No gross muscle atrophy, no edema, no contractures Neuro: Speech clear, face symmetrical and CN II-XII grossly intact with no noted focal neuro deficits Psych: Alert and oriented to person, place, time, and situation. Appropriate and pleasant affect. Assessment and Plan of Care: Colitis, concerns for possible ulcerative colitis Lower GI bleed, with reports of bright red blood per rectum, suspect secondary to above Acute blood loss anemia, secondary to above Leukocytosis Lactic acidosis, resolved with IV fluid hydration Reported history of IBS Furnace Charger following, discussed plan of care in detail with gastroenterology BUILDING SERVICE WORKER. Hemoglobin has been trended resulting at 12.7, 11.8, and 11.8. Leukocytosis remains with WBC count of 19.36 this morning. Continue IV antibiotics with Levaquin 500 mg every 24 hours and Flagyl 500 mg every 8 hours. IV fluid hydration with 0.9% normal saline at 100 cc/h. Clear liquid diet, advance only per recommendations of gastroenterology. Obtain C. difficile Continue close monitoring with repeat a.m. labs to follow closely for resolution of leukocytosis close monitoring of hemoglobin secondary to reports of lower GI bleed. Cwa-exebqwd-blyxxyyot diabetes mellitus with hyperglycemia Hold metformin and Ozempic and patient placed on glycemic protocol with Humalog sliding scale. Follow-up on hemoglobin A1c results. Hypertension Monitor vital signs and continue daily medication regimen with lisinopril 10 mg daily. Data and imaging reviewed: Vital signs reviewed. Blood pressure 112/79, heart rate 87, respiratory rate 14, temp 98.1 F, and SpO2 of 97% on room air Morning labs reviewed. CBC showing Leukocytosis remains with WBC count of 19.36 and hemoglobin trended closely over the past 18 hours and stable at 12.7, 11.8, and 11.8. BMP unremarkable with exception of hyperglycemia with blood glucose of 165. Hemoglobin A1c was elevated at 7.1. Liver profile unremarkable. CODE STATUS: Full code DVT prophylaxis: MANJEET caceres and SCDs Anticipated discharge date: Pending clinical course Anticipated discharge place: Home Patient was seen independently by Nurse Pracitioner. This document was prepared using [employer] dictation software. Please allow for errors in hardener helper, while rare they do occur. Eduardo Mojica NP rendered care for this patient independently, reviewed the findings and plan as documented in the note above and agree with plan. I did not physically speak with or examine the patient on this date. Objective - Vital Signs Vital signs: Vital Signs Temp 98.1 F 04/22/25 08:00 Pulse 87 04/22/25 08:00 Resp 14 04/22/25 08:00 BP 112/79 04/22/25 08:00 Pulse Ox 97 04/22/25 08:00 FiO2 Intake & Output 04/21/25 04/22/25 04/22/25 18:59 06:59 18:59 Intake Total 240 100 Balance 240 100 Weight 75.3 kg Intake: IV 100 Sodium Chloride 0.9% 1, 100 000 ml @ 100 mls/hr IV . Q10H REJI Rx#:[id number] Oral 240 Other: # Voids 1 # Bowel Movements 1 - Labs CBC & Chem 7: 04/22/25 09:33 04/22/25 03:43 Labs: Abnormal Lab Results - Last 24 Hours (Table) 04/21/25 04/21/25 04/21/25 Range/Units 09:43 09:43 10:50 WBC 15.80 H (4.50-10.00) 10*3/uL Hgb (12.0-15.0) g/dL Hct (37.2-46.3) % Immature Gran # (0.00-0.04) 10*3/uL Neutrophils # (1.80-7.70) 10*3/uL Monocytes # (0.20-1.00) 10*3/uL Eosinophils # (0.04-0.35) 10*3/uL Creatinine 0.47 L (0.52-1.04) mg/dL Glucose 249 H (74-99) mg/dL POC Glucose (mg/dL) 215 H (70-110) mg/dL Hemoglobin A1c (<=6.0) % 04/21/25 04/21/25 04/22/25 Range/Units 16:51 20:08 03:34 WBC (4.50-10.00) 10*3/uL Hgb (12.0-15.0) g/dL Hct (37.2-46.3) % Immature Gran # (0.00-0.04) 10*3/uL Neutrophils # (1.80-7.70) 10*3/uL Monocytes # (0.20-1.00) 10*3/uL Eosinophils # (0.04-0.35) 10*3/uL Creatinine (0.52-1.04) mg/dL Glucose (74-99) mg/dL POC Glucose (mg/dL) 209 H 191 H 168 H (70-110) mg/dL Hemoglobin A1c (<=6.0) % 04/22/25 04/22/25 04/22/25 Range/Units 03:42 03:43 03:43 WBC 18.63 H (4.50-10.00) 10*3/uL Hgb (12.0-15.0) g/dL Hct (37.2-46.3) % Immature Gran # 0.14 H (0.00-0.04) 10*3/uL Neutrophils # 15.06 H (1.80-7.70) 10*3/uL Monocytes # 1.03 H (0.20-1.00) 10*3/uL Eosinophils # 0.00 L (0.04-0.35) 10*3/uL Creatinine (0.52-1.04) mg/dL Glucose 165 H (74-99) mg/dL POC Glucose (mg/dL) (70-110) mg/dL Hemoglobin A1c 7.1 H (<=6.0) % 04/22/25 04/22/25 Range/Units 05:49 06:38 WBC 18.80 H (4.50-10.00) 10*3/uL Hgb 11.8 L (12.0-15.0) g/dL Hct 35.3 L (37.2-46.3) % Immature Gran # (0.00-0.04) 10*3/uL Neutrophils # (1.80-7.70) 10*3/uL Monocytes # (0.20-1.00) 10*3/uL Eosinophils # (0.04-0.35) 10*3/uL Creatinine (0.52-1.04) mg/dL Glucose (74-99) mg/dL POC Glucose (mg/dL) 157 H (70-110) mg/dL Hemoglobin A1c (<=6.0) %
[2025-04-22] MEDS: diphenhydrAMINE 50 MG/ML 1 ML VIAL IVP STA (15:10)
[2025-04-22] MEDS: FAMOTIDINE 20 MG/2 ML VIAL IV STA (15:10)
[2025-04-22 15:48] LABS: Basophils # (A) 0.04 10*3/uL (0.00-0.10); Basophils % (A) 0.3 %; Eosinophils # (A) 0.01 10*3/uL (0.04-0.35); Eosinophils % (A) 0.1 %; HCT 35.6 % (37.2-46.3); HGB 12.0 g/dL (12.0-15.0); Lymphocytes # (A) 3.48 10*3/uL (0.90-5.00); Lymphocytes % (A) 22.9 %; MCH 28.6 pg (27.0-32.0); MCHC 33.7 g/dL (32.0-37.0); MCV 85.0 fL (80.0-97.0); Monocytes # (A) 0.68 10*3/uL (0.20-1.00); Monocytes % (A) 4.5 %; Neutrophils # (A) 10.94 10*3/uL (1.80-7.70); Neutrophils % (A) 71.7 %; Platelet Count 216 10*3/uL (140-440); RBC 4.19 10*6/uL (4.10-5.20); RDW 12.6 % (11.5-14.5); WBC 15.22 10*3/uL (4.50-10.00)
[2025-04-22 16:04] LABS: Glucose,Whole Blood 158 mg/dL (70-110)
[2025-04-22 20:12] LABS: Glucose,Whole Blood 144 mg/dL (70-110)
[2025-04-23 06:14] LABS: Glucose,Whole Blood 152 mg/dL (70-110)
[2025-04-23] MEDS: ACETAMINOPHEN TAB 325 MG TAB PO PRN (06:49)
[2025-04-23 07:18] LABS: HCT 33.1 % (37.2-46.3); HGB 11.0 g/dL (12.0-15.0); MCH 28.0 pg (27.0-32.0); MCHC 33.2 g/dL (32.0-37.0); MCV 84.2 fL (80.0-97.0); Platelet Count 190 10*3/uL (140-440); RBC 3.93 10*6/uL (4.10-5.20); RDW 12.5 % (11.5-14.5); WBC 9.77 10*3/uL (4.50-10.00)
[2025-04-23 08:11] LABS: ALT 25 U/L (4-34); AST 27 U/L (14-36); African American GFR (CKD) >90 (>60 ml/min/1.73 sqM); Albumin 3.3 g/dL (3.5-5.0); Alkaline Phosphatase 56 U/L (38-126); Anion Gap 8 mmol/L; Blood Urea Nitrogen 11 mg/dL (7-17); Calcium 8.7 mg/dL (8.4-10.2); Carbon Dioxide 26 mmol/L (22-30); Chloride 104 mmol/L (98-107); Glucose 147 mg/dL (74-99); Magnesium 1.9 mg/dL (1.6-2.3); Non-African American GFR(CKD) >90 (>60 ml/min/1.73 sqM); Potassium 3.8 mmol/L (3.5-5.1); Sodium 138 mmol/L (137-145); Total Protein 5.5 g/dL (6.3-8.2)
[2025-04-23 11:44] LABS: Glucose,Whole Blood 208 mg/dL (70-110)
--- NOTE | 2025-04-23 12:23 | P.PN ---
Subjective Progress Note Date: 04/23/25 Principal diagnosis: Colitis, GI bleed This a pleasant 54-year-old female who presented to the emergency department yesterday with complaints of abdominal pain, diarrhea and blood in her stool. Patient states she has a history of IBS was diagnosed many years ago by her PCP. Medical history includes diabetes mellitus and IBS. Patient states she started having severe abdominal pain nausea and vomiting diarrhea with blood in her stool which she has not really had in the past. She states for multiple years she has had flareups where she will get diarrhea about 10 times a day for 1 to 2 days this occurs around every 2 to 3 weeks in the summer and maybe every month or 2 in the wintertime. She had a colonoscopy done about 7 to 8 years ago at [place] and states she was told it was normal. She currently is not on any medications for her IBS. She was recently started on Ozempic and metformin for elevated blood sugars. She also states she was recently started on antibiotics for urinary tract infection about 2 weeks ago. Last bowel movement was yesterday evening. Patient was admitted with leukocytosis, she was afebrile. She had a CT angiogram of the abdomen with reports of long segment acute colitis only sparing the cecum. Differential diagnosis includes infectious inflammatory and ischemic etiologies. Ulcerative colitis needs to be strongly considered ba sed on CT appearance. Correlate clinically. Started on Zosyn and Flagyl, also started on prednisone 40 mg daily by primary medicine team. Patient currently is comfortable, no further rectal bleeding or diarrhea today. Leukocytosis trending down. Patient had a 2 g drop in her hemoglobin from 15-13. 04/22/2025 Patient seen and examined today as a follow-up. Patient had an [employer] called early this morning as she had episode of abdominal cramping and bright red blood per rectum around 345. She was transferred to the ICU as an overflow for 3 S. She has had no further bleeding since that time. States she has just overall abdominal discomfort. She remains on IV antibiotics. No nausea or vomiting. Patient is hemodynamically stable. Today's labs WBC 18.8 hemoglobin 11.8 hematocrit 35 platelet count 246,000 04/23/2025 Patient seen and examined today as a follow-up. She states that she is feeling better. Abdominal pain improving. She has not had any further bowel movements. No rectal bleeding. No nausea or vomiting. Has been tolerating clear liquid diet. Hemoglobin stable 11.0. She has been afebrile. Leukocytosis improved. Objective - Vital Signs Vital signs: Vital Signs Temp 97.7 F 04/23/25 04:00 Pulse 76 04/23/25 04:00 Resp 14 04/23/25 04:00 BP 121/78 04/23/25 04:00 Pulse Ox 95 04/23/25 04:00 FiO2 Intake & Output 04/22/25 04/22/25 04/23/25 06:59 18:59 06:59 Intake Total 100 800 240 Balance 100 800 240 Weight 75.3 kg 75.2 kg Intake: IV 100 800 Sodium Chloride 0.9% 1, 100 800 000 ml @ 100 mls/hr IV . Q10H REJI Rx#:[id number] Oral 240 Other: Voiding Method Toilet # Voids 1 3 4 # Bowel Movements 1 1 - Exam General appearance: The patient is alert, oriented, appears in no acute distress. HET: Head is normocephalic and atraumatic. Conjunctiva pink. Sclera anicteric. Neck: Supple without lymphadenopathy. Abdomen: Soft, mild tenderness, nondistended. Extremities: Normal skin color and turgor. No pedal edema Skin: No rashes, no jaundice Neurological: No focal deficits. Alert and oriented. - Labs CBC & Chem 7: 04/23/25 06:21 04/23/25 06:21 Labs: Abnormal Lab Results - Last 24 Hours (Table) 04/22/25 04/22/25 04/22/25 Range/Units 03:42 09:33 15:29 WBC 19.36 H 15.22 H (4.50-10.00) 10*3/uL RBC 4.09 L (4.10-5.20) 10*6/uL Hgb 11.8 L (12.0-15.0) g/dL Hct 34.2 L 35.6 L (37.2-46.3) % Immature Gran # 0.07 H (0.00-0.04) 10*3/uL Neutrophils # 10.94 H (1.80-7.70) 10*3/uL Eosinophils # 0.01 L (0.04-0.35) 10*3/uL POC Glucose (mg/dL) (70-110) mg/dL Hemoglobin A1c 7.1 H (<=6.0) % 04/22/25 04/22/25 04/23/25 Range/Units 16:03 20:11 06:14 WBC (4.50-10.00) 10*3/uL RBC (4.10-5.20) 10*6/uL Hgb (12.0-15.0) g/dL Hct (37.2-46.3) % Immature Gran # (0.00-0.04) 10*3/uL Neutrophils # (1.80-7.70) 10*3/uL Eosinophils # (0.04-0.35) 10*3/uL POC Glucose (mg/dL) 158 H 144 H 152 H (70-110) mg/dL Hemoglobin A1c (<=6.0) % Assessment and Plan (1) Colitis Narrative/Plan: 54-year-old female presenting with abdominal pain nausea vomiting and diarrhea with previous diagnosis of IBS by her primary care physician. Recently on antibiotics for urinary tract infection which she completed about a week ago. This is a new patient who has mixed IBS with constipation and diarrhea where she has flareups of diarrhea for 10 times a day for 1 to 2 days at times. Admitted with leukocytosis concerning for possible infectious, ischemic versus inflammatory colitis with CT evidence. Continue antibiotics at this time, need to consider possible ulcerative colitis, although less likely. Last colonoscopy 7-8 years ago which she states was normal. Patient with another episode of for painful cramping followed by blood per rectum. Stool for C. difficile pending not collected. Again likely dealing with infectious colitis versus ischemic colitis. Continue to treat symptomatically. If further bleeding may consider colonoscopy while inpatient. Current Visit: Yes Status: Acute Code(s): K52.9 - NONINFECTIVE GASTROENTERITIS AND COLITIS, UNSPECIFIED SNOMED Code(s): 11744896 Plan: 1. Patient may have clear liquid diet 2. Symptomatic and supportive care 3. Advance to full liquid diet then advance as tolerated 4. Antiemetics as needed 5. Continue antibiotics as ordered 6. Symptoms have been improving. Recommend outpatient colonoscopy in 4 to 6 weeks 7. Likely discharge home tomorrow Thank you for this consultation, we will continue to follow. Dr. Camryn Rivas I agree with the dictator's note, documented as a scribe by Leydi Villa.
--- NOTE | 2025-04-23 14:11 | P.PN ---
Subjective Progress Note Date: 04/23/25 Hospital course: Patient is a very pleasant 54-year-old female with a past medical history of hypertension, [id number]-xnqbtwvom diabetes mellitus, and IBS with chronic constipation followed by diarrhea pattern. She presented to the emergency department on 04/20/2025 secondary to reports of severe abdominal pain, nausea, and vomiting accompanied by multiple episodes of bright red blood in her stool. She denied having any hematemesis or coffee-ground emesis and denied having any fevers, chills, diaphoresis, or lightheadedness. Upon arrival to our facility, patient underwent evaluation in the emergency department. Vital signs upon arrival show blood pressure 138/85, heart rate 91, respiratory rate 18, temp 98.1 F, and SpO2 of 98% on room air. EKG completed showing normal sinus rhythm at 85 bpm with no noted T wave or ST abnormality showing no signs of acute ische bartolome upon personal review and interpretation. Labs completed and reviewed. CBC showing leukocytosis with WBC count of 19.95 and hemoglobin of 15.3. Coagulation profile showing a low PTT of 21.7. BMP showing high anion gap metabolic acidosis with chloride of 100, bicarb of 21, and anion gap of 16 along with mild prerenal azotemia with BUN of 24. Blood glucose was 263. Calcium 9.4. Magnesium 1.9. Liver profile unremarkable. Troponin was 0.015. Lipase normal findings at 156. Urinalysis positive for glucose and proteins but negative for infection. Serum acetone negative. CTA abdomen and pelvis was completed showing a long segment of acute colitis only sparing the cecum concerning for infectious/inflammatory/ischemic etiologies, radiologist stating ulcerative colitis needs to be strongly considered based upon CT appearance. Physical exam: Patient was seen and fully evaluated at bedside this morning. She reports resolution of abdominal pain/cramping since yesterday evening. She denies any further episodes of blood in her stool but states she has not had any further bowel movements. Patient tolerating clear liquid diet and denies any episodes of nausea or vomiting. Vital signs reviewed and stable. General: Nontoxic, no distress and appears stated age. Derm: Skin warm and dry, normal coloration for ethnicity. Head: Atraumatic, normocephalic and symmetric. Eyes: EOM's intact, no lid lag, and anicteric sclera Mouth: no lip lesions, mucus membranes moist Cardiovascular: regular rate and rhythm with normal S1S2, no murmur, positive posterior tibial pulses bilaterally, and cap refill < 2 seconds. Lungs: Respirations even, regular, and unlabored on room air. Lungs CTA bilaterally, no rhonchi, no rales, no wheezing, and no accessory muscle usage. Abdominal: soft, bowel sounds x 4, tenderness upon palpation to bilateral lower quadrants, no guarding, no appreciable organomegaly Ext: ROM intact. No gross muscle atrophy, no edema, no contractures Neuro: Speech clear, face symmetrical and CN II-XII grossly intact with no noted focal neuro deficits Psych: Alert and oriented to person, place, time, and situation. Appropriate and pleasant affect. Assessment and Plan of Care: Colitis, concerns for possible ulcerative colitis Lower GI bleed, with reports of bright red blood per rectum, suspect secondary t o above Acute blood loss anemia, secondary to above. Stable Leukocytosis, resolved Lactic acidosis, resolved with IV fluid hydration Reported history of IBS and family history of ulcerative colitis Speech Therapy Assistant following, discussed plan of care in detail with gastroenterology BARREL BRANDER and further recommendations patient's diet to be slowly advanced throughout the day, repeat hemoglobin in the morning and likely cleared for discharge tomorrow. Hemoglobin stable at 11.0. Leukocytosis resolved and is 9.77 this morning. Continue IV antibiotics with Levaquin 500 mg every 24 hours and Flagyl 500 mg every 8 hours. Clear liquid diet, advance only per recommendations of gastroenterology. Obtain C. difficile Continue close monitoring with repeat a.m. labs to follow closely for resoluti on of leukocytosis close monitoring of hemoglobin secondary to reports of lower GI bleed. Wcn-kojmssz-ofdzqdumz diabetes mellitus with hyperglycemia Hold metformin and Ozempic and patient placed on glycemic protocol with Humalog sliding scale. Hemoglobin A1c 7.1%.. Hypertension Monitor vital signs and continue daily medication regimen with lisinopril 10 mg daily. Data and imaging reviewed: Vital signs reviewed. Blood pressure 110/74, heart rate 84, respiratory rate 18, temp 98.5 F, and SpO2 of 96% on room air. Morning labs reviewed. CBC showing resolution of leukocytosis this morning with WBC count down to 9.77 and stable hemoglobin of 11.0. Platelet count 198,000. BMP unremarkable with exception of mild hyperglycemia with blood glucose of 147. Hemoglobin A1c resulting at 7.1%. Calcium 8.7, magnesium 1.9, and liver profile unremarkable with exception of mild hypoproteinemia with protein of 5.5 and hypoalbuminemia with albumin of 3.3. CODE STATUS: Full code DVT prophylaxis: MANJEET caceres and SCDs Anticipated discharge date: Pending clinical course, likely tomorrow morning Anticipated discharge place: Home Patient was seen independently by Nurse Pracitioner. This document was prepared using [employer] dictation software. Please allow for errors in aviation engineer, while rare they do occur. Eduardo Mojica BARREL BRANDER rendered care for this patient independently, reviewed the findi ngs and plan as documented in the note above and agree with plan. I did not physically speak with or examine the patient on this date. Objective - Vital Signs Vital signs: Vital Signs Temp 98.5 F 04/23/25 07:50 Pulse 84 04/23/25 07:50 Resp 18 04/23/25 07:50 BP 110/74 04/23/25 07:50 Pulse Ox 96 04/23/25 07:50 FiO2 Intake & Output 04/22/25 04/23/25 04/23/25 18:59 06:59 18:59 Intake Total 800 240 Balance 800 240 Weight 75.2 kg Intake: IV 800 Sodium Chloride 0.9% 1, 800 000 ml @ 100 mls/hr IV . Q10H REJI Rx#:[id number] Oral 240 Other: Voiding Method Toilet # Voids 3 4 # Bowel Movements 1 - Labs CBC & Chem 7: 04/23/25 06:21 04/23/25 06:21 Labs: Abnormal Lab Results - Last 24 Hours (Table) 04/22/25 04/22/25 04/22/25 Range/Units 09:33 15:29 16:03 WBC 19.36 H 15.22 H (4.50-10.00) 10*3/uL RBC 4.09 L (4.10-5.20) 10*6/uL Hgb 11.8 L (12.0-15.0) g/dL Hct 34.2 L 35.6 L (37.2-46.3) % Immature Gran # 0.07 H (0.00-0.04) 10*3/uL Neutrophils # 10.94 H (1.80-7.70) 10*3/uL Eosinophils # 0.01 L (0.04-0.35) 10*3/uL Glucose (74-99) mg/dL POC Glucose (mg/dL) 158 H (70-110) mg/dL Total Protein (6.3-8.2) g/dL Albumin (3.5-5.0) g/dL 04/22/25 04/23/25 04/23/25 Range/Units 20:11 06:14 06:21 WBC (4.50-10.00) 10*3/uL RBC 3.93 L (4.10-5.20) 10*6/uL Hgb 11.0 L (12.0-15.0) g/dL Hct 33.1 L (37.2-46.3) % Immature Gran # (0.00-0.04) 10*3/uL Neutrophils # (1.80-7.70) 10*3/uL Eosinophils # (0.04-0.35) 10*3/uL Glucose (74-99) mg/dL POC Glucose (mg/dL) 144 H 152 H (70-110) mg/dL Total Protein (6.3-8.2) g/dL Albumin (3.5-5.0) g/dL 04/23/25 Range/Units 06:21 WBC (4.50-10.00) 10*3/uL RBC (4.10-5.20) 10*6/uL Hgb (12.0-15.0) g/dL Hct (37.2-46.3) % Immature Gran # (0.00-0.04) 10*3/uL Neutrophils # (1.80-7.70) 10*3/uL Eosinophils # (0.04-0.35) 10*3/uL Glucose 147 H (74-99) mg/dL POC Glucose (mg/dL) (70-110) mg/dL Total Protein 5.5 L (6.3-8.2) g/dL Albumin 3.3 L (3.5-5.0) g/dL
[2025-04-23 16:52] LABS: Glucose,Whole Blood 210 mg/dL (70-110)
[2025-04-23] MEDS: CALCIUM CARBONATE 500 MG CHEWABLE PO PRN (17:28)
[2025-04-23] MEDS: FAMOTIDINE 20 MG/2 ML VIAL IV STA (17:41)
[2025-04-23] MEDS: diphenhydrAMINE 50 MG/ML 1 ML VIAL IVP STA (17:41)
[2025-04-23 20:26] LABS: Glucose,Whole Blood 97 mg/dL (70-110)
[2025-04-24 05:29] LABS: Glucose,Whole Blood 132 mg/dL (70-110)
[2025-04-24 08:15] VITALS: BP 123/80; PULSE 83; RESP 18; TEMP 97.5
[2025-04-24 08:34] LABS: HCT 36.4 % (37.2-46.3); HGB 12.2 g/dL (12.0-15.0); MCH 28.4 pg (27.0-32.0); MCHC 33.5 g/dL (32.0-37.0); MCV 84.8 fL (80.0-97.0); Platelet Count 218 10*3/uL (140-440); RBC 4.29 10*6/uL (4.10-5.20); RDW 12.4 % (11.5-14.5); WBC 8.85 10*3/uL (4.50-10.00)
[2025-04-24 08:44] LABS: ALT 29 U/L (4-34); AST 29 U/L (14-36); African American GFR (CKD) >90 (>60 ml/min/1.73 sqM); Albumin 3.5 g/dL (3.5-5.0); Alkaline Phosphatase 55 U/L (38-126); Anion Gap 9 mmol/L; Blood Urea Nitrogen 13 mg/dL (7-17); Calcium 9.0 mg/dL (8.4-10.2); Carbon Dioxide 27 mmol/L (22-30); Chloride 102 mmol/L (98-107); Glucose 156 mg/dL (74-99); Magnesium 1.9 mg/dL (1.6-2.3); Non-African American GFR(CKD) >90 (>60 ml/min/1.73 sqM); Potassium 3.6 mmol/L (3.5-5.1); Sodium 138 mmol/L (137-145); Total Protein 5.8 g/dL (6.3-8.2)
[2025-04-24] MEDS: metroNIDAZOLE 500 MG TAB PO SCH (09:44)
--- NOTE | 2025-04-24 09:55 | P.PN ---
Subjective Progress Note Date: 04/24/25 Principal diagnosis: Colitis, GI bleed This a pleasant 54-year-old female who presented to the emergency department yesterday with complaints of abdominal pain, diarrhea and blood in her stool. Patient states she has a history of IBS was diagnosed many years ago by her PCP. Medical history includes diabetes mellitus and IBS. Patient states she started having severe abdominal pain nausea and vomiting diarrhea with blood in her stool which she has not really had in the past. She states for multiple years she has had flareups where she will get diarrhea about 10 times a day for 1 to 2 days this occurs around every 2 to 3 weeks in the summer and maybe every month or 2 in the wintertime. She had a colonoscopy done about 7 to 8 years ago at [place] and states she was told it was normal. She currently is not on any medications for her IBS. She was recently started on Ozempic and metformin for elevated blood sugars. She also states she was recently started on antibiotics for urinary tract infection about 2 weeks ago. Last bowel movement was yesterday evening. Patient was admitted with leukocytosis, she was afebrile. She had a CT angiogram of the abdomen with reports of long segment acute colitis only sparing the cecum. Differential diagnosis includes infectious inflammatory and ischemic etiologies. Ulcerative colitis needs to be strongly considered ba sed on CT appearance. Correlate clinically. Started on Zosyn and Flagyl, also started on prednisone 40 mg daily by primary medicine team. Patient currently is comfortable, no further rectal bleeding or diarrhea today. Leukocytosis trending down. Patient had a 2 g drop in her hemoglobin from 15-13. 04/22/2025 Patient seen and examined today as a follow-up. Patient had an [facility] called early this morning as she had episode of abdominal cramping and bright red blood per rectum around 345. She was transferred to the ICU as an overflow for 3 S. She has had no further bleeding since that time. States she has just overall abdominal discomfort. She remains on IV antibiotics. No nausea or vomiting. Patient is hemodynamically stable. Today's labs WBC 18.8 hemoglobin 11.8 hematocrit 35 platelet count 246,000 04/23/2025 Patient seen and examined today as a follow-up. She states that she is feeling better. Abdominal pain improving. She has not had any further bowel movements. No rectal bleeding. No nausea or vomiting. Has been tolerating clear liquid diet. Hemoglobin stable 11.0. She has been afebrile. Leukocytosis improved. 04/24/2025 Patient seen and examined today as a follow-up. No bowel movements and no bleeding per rectum. States that she is feeling a little gassy and bloated and has some heartburn otherwise no abdominal pain. No nausea or vomiting. She is tolerating a regular diet. Hemoglobin stable and actually improved from 11.0- 12.2. She is afebrile. No leukocytosis. Objective - Vital Signs Vital signs: Vital Signs Temp 97.5 F L 04/24/25 08:15 Pulse 83 04/24/25 08:15 Resp 18 04/24/25 08:15 BP 123/80 04/24/25 08:15 Pulse Ox 95 04/24/25 08:15 FiO2 Intake & Output 04/23/25 04/24/25 04/24/25 18:59 06:59 18:59 Intake Total 240 Balance 240 Weight 74.5 kg Intake: Oral 240 Other: Voiding Method Toilet # Voids 1 # Bowel Movements 1 - Exam General appearance: The patient is alert, oriented, appears in no acute distress. HET: Head is normocephalic and atraumatic. Conjunctiva pink. Sclera anicteric. Neck: Supple without lymphadenopathy. Abdomen: Soft, nontender, nondistended. Extremities: Normal skin color and turgor. No pedal edema Skin: No rashes, no jaundice Neurological: No focal deficits. Alert and oriented. - Labs CBC & Chem 7: 04/24/25 07:32 04/24/25 07:32 Labs: Abnormal Lab Results - Last 24 Hours (Table) 04/23/25 04/23/25 04/24/25 Range/Units 11:42 16:50 05:27 Hct (37.2-46.3) % Glucose (74-99) mg/dL POC Glucose (mg/dL) 208 H 210 H 132 H (70-110) mg/dL Total Protein (6.3-8.2) g/dL 04/24/25 04/24/25 Range/Units 07:32 07:32 Hct 36.4 L (37.2-46.3) % Glucose 156 H (74-99) mg/dL POC Glucose (mg/dL) (70-110) mg/dL Total Protein 5.8 L (6.3-8.2) g/dL Assessment and Plan (1) Colitis Narrative/Plan: 54-year-old female presenting with abdominal pain nausea vomiting and diarrhea with previous diagnosis of IBS by her primary care physician. Recently on antibiotics for urinary tract infection which she completed about a week ago. This is a new patient who has mixed IBS with constipation and diarrhea where she has flareups of diarrhea for 10 times a day for 1 to 2 days at times. Admitted with leukocytosis concerning for possible infectious, ischemic versus inflammatory colitis with CT evidence. Continue antibiotics at this time, need to consider possible ulcerative colitis, although less likely. Last colonoscopy 7-8 years ago which she states was normal. Suspected infectious colitis, Now improved with antibiotic therapy. No further bleeding and abdominal pain improved. Leukocytosis improved. Recommend outpatient follow-up with gastroenterology in 2 weeks to schedule colonoscopy for in 4 to 6 weeks. Continue oral antibiotics on discharge. Current Visit: Yes Status: Acute Code(s): K52.9 - NONINFECTIVE GASTROENTERITIS AND COLITIS, UNSPECIFIED SNOMED Code(s): 28828460 (2) GERD (gastroesophageal reflux disease) Narrative/Plan: Discussed with patient take Pepcid as needed, reflux measures Current Visit: Yes Status: Acute Code(s): K21.9 - GASTRO-ESOPHAGEAL REFLUX DISEASE WITHOUT ESOPHAGITIS SNOMED Code(s): 114190568 Plan: 1. Patient may have clear liquid diet 2. Symptomatic and supportive care 3. Regular diet 4. Antiemetics as needed 5. Continue antibiotics on discharge for 10 days 6. Outpatient follow-up in 2 weeks with plan for colonoscopy in 4 to 6 weeks Thank you for this consultation, patient is cleared from gastroenterology for discharge. Dr. Camryn Rivas I agree with the dictator's note, documented as a scribe by Leydi Villa.
[2025-04-24 11:34] LABS: Glucose,Whole Blood 209 mg/dL (70-110)
--- NOTE | 2025-04-24 12:19 | P.DS ---
Providers Date of admission: 04/21/25 00:47 Attending physician: Elva Cutler MD Consults: 04/21/25 00:44 Consult Physician Routine Consulting Provider: Chuyita Rivas Consult Reason/Comments: GI bleed Do you want consulting provider notified?: Yes, Notify in am Primary care physician: [facility] Course: Discharge Diagnosis: Colitis, concerns for possible ulcerative colitis Lower GI bleed, with reports of bright red blood per rectum, suspect secondary to above Acute blood loss anemia, secondary to above. Stable Leukocytosis, resolved Lactic acidosis, resolved with IV fluid hydration Reported history of IBS and family history of ulcerative colitis Type II DM not on insulin Hyperglycemia HTN Hospital Course: Patient is a very pleasant 54-year-old female with a past medical history of hypertension, [id number] diabetes mellitus, and IBS with chronic constipation followed by diarrhea pattern. She presented to the emergency department on 04/20/2025 secondary to reports of severe abdominal pain, nausea, and vomiting accompanied by multiple episodes of bright red blood in her stool. She denied having any hematemesis or coffee-ground emesis and denied having any fevers, chills, diaphoresis, or lightheadedness. Upon arrival to our facility, patient underwent evaluation in the emergency department. Vital signs upon arrival show blood pressure 138/85, heart rate 91, respiratory rate 18, temp 98.1 F, and SpO2 of 98% on room air. EKG completed showing normal sinus rhythm at 85 bpm with no noted T wave or ST abnormality showing no signs of acute ischemia upon personal review and interpretation. Labs completed and reviewed. CBC showing leukocytosis with WBC count of 19.95 and hemoglobin of 15.3. Coagulation profile showing a low PTT of 21.7. BMP showing high anion gap metabolic acidosis with chloride of 100, bicarb of 21, and anion gap of 16 along with mild prerenal azotemia with BUN of 24. Blood glucose was 263. Calcium 9.4. Magnesium 1.9. Liver profile unremarkable. Troponin was 0.015. Lipase normal findings at 156. Urinalysis positive for glucose and proteins but negative for infection. Serum acetone negative. CTA abdomen and pelvis was completed showing a long segment of acute colitis only sparing the cecum concerning for infectious/inflammatory/ischemic etiologies, radiologist stating ulcerative colitis needs to be strongly considered based upon CT appearance. Patient was started on antibiotics with Levaquin and Flagyl, tolerated clear liquid diet and diet was advanced by GI, hemoglobin remained stable. 04/14: Seen and examined at bedside, no acute events overnight, tolerating diet well, no active complaints, vitals are stable, hemoglobin 12.2. Patient is cleared for discharge by GI on 10 days of Flagyl and Levaquin. Patient to follow-up with GI to 6 weeks. Patient seen and examined at bedside. Vital signs reviewed and stable. General: Nontoxic, no distress, appears at stated age Derm: Warm, dry Head: Atraumatic, normocephalic, symmetric Eyes: EOMI, no lid lag, anicteric sclera Mouth: No lip lesion, mucus membranes moist Cardiovascular: S1S2 reg, no murmur Lungs: CTA bilateral, no rhonchi, no rales, no accessory muscle use Abdominal: Soft, nontender to palpation, no guarding, no appreciable organomegaly Ext: No gross muscle atrophy, no edema, no contractures Neuro: CN II-XI grossly intact, no focal neuro deficits Psych: Alert, oriented, appropriate affect A total of 40 minutes of time were spent preparing this complex discharge summary. Patient Condition at Discharge: Stable Plan - Discharge Summary New Discharge Prescriptions: New Levofloxacin [Levaquin] 500 mg PO Q24H #10 tab metroNIDAZOLE [Flagyl] 500 mg PO TID #30 tab Continue metFORMIN HCL [metFORMIN HCL ER] 750 mg PO W/BRKFST Aspirin EC [Ecotrin Low Dose] 81 mg PO W/BRKFST Semaglutide [Ozempic] 1 mg SQ DELEON lisinopriL [Zestril] 10 mg PO W/BRKFST ondansetron HCL [Zofran] 8 mg PO Q8HR PRN PRN Reason: Nausea And Vomiting Discharge Medication List Aspirin EC [Ecotrin Low Dose] 81 mg PO W/BRKFST 04/21/25 [History] Semaglutide [Ozempic] 1 mg SQ DELEON 04/21/25 [History] lisinopriL [Zestril] 10 mg PO W/BRKFST 04/21/25 [History] metFORMIN HCL [metFORMIN HCL ER] 750 mg PO W/BRKFST 04/21/25 [History] ondansetron HCL [Zofran] 8 mg PO Q8HR PRN 04/21/25 [History] Levofloxacin [Levaquin] 500 mg PO Q24H #10 tab 04/24/25 [Rx] metroNIDAZOLE [Flagyl] 500 mg PO TID #30 tab 04/24/25 [Rx] Follow up Appointment(s)/Referral(s): Chuyita Rivas MD [STAFF PHYSICIAN] - 2 Weeks Damian Wade MD [Primary Care Provider] - 1-2 days Patient Instructions/Handouts: GERD (Gastroesophageal Reflux Disease) (DC), Infectious Colitis (GEN) Activity/Diet/Wound Care/Special Instructions: Activity: As tolerated. Take breaks as needed. Diet: Low-fat diet. Special Instructions: Take all of your medications as directed and remember to keep all of your doctor's appointments and follow-up as needed. Thank you for allowing us to participate in your care, it was truly a pleasure having you for our patient!!! Discharge Disposition: HOME SELF-CARE
[2025-04-24] MEDS ORDERED: LEVOFLOXACIN 500 MG TAB PO SCH (14:00)
== END 2025-04-24 14:18 | disposition home or self-care (01) | DRG 386 ==
LOC: EC 20:21 → 1SOBS 04-21 00:46 → OBSVTOIN 04-21 00:47 → 1SOBS 04-21 01:44 → 2SICU 04-22 03:57 → 3SCARD 04-22 17:57
PROVIDERS: ADMIT Internal Medicine; ATTEND Internal Medicine
DX: K51.911 Ulcerative colitis, unspecified with rectal bleeding (principal); D62 Acute posthemorrhagic anemia; E87.20 Acidosis, unspecified; E11.65 Type 2 diabetes mellitus with hyperglycemia; I10 Essential (primary) hypertension; K21.9 Gastro-esophageal reflux disease without esophagitis; Z88.0 Allergy status to penicillin; Z79.84 Long term (current) use of oral hypoglycemic drugs; Z90.710 Acquired absence of both cervix and uterus
CPT/HCPCS: 36415; 74174; 80053; 81003; 81025; 82009; 83036; 83690; 83735; 84484; 85025; 85027; 85610; 85730; 86850; 86900; 86901; 93005; 96361; 96374; 96375; 99285